=== PATIENT | male | born 1950 | race Two or more races ===

== ENCOUNTER 2023-05-11 10:54 | Emergency (ER) | payer BC, OTHER ==
[~2023-05-11] VITALS: Ht 180.3 cm; Wt 82.9 kg
[2023-05-11 11:00] VITALS: TEMP 98.1; O2SAT 92
[2023-05-11] MEDS ORDERED: MORPHINE SULFATE INJ 2 MG/ml SYRG IM ONE (12:45)
[2023-05-11 12:57] VITALS: BP 145/70; PULSE 105; RESP 18
== END 2023-05-11 13:05 | disposition home or self-care (01) ==
LOC: ER 10:54
DX: M54.12 Radiculopathy, cervical region (principal)
CPT/HCPCS: 72040; 93005; 96372; 99283; J2270